=== PATIENT | female | born 1980 | race African-American/Black ===

== ENCOUNTER 2018-11-18 21:45 | Emergency (ER) | payer BC ==
[~2018-11-18] VITALS: Ht 154.9 cm; Wt 72.6 kg
[2018-11-18 22:16] VITALS: BP 132/86
--- NOTE | 2018-11-18 22:37 | PHYS DOC ---
Past History Past Medical History: No Pertinent History Past Surgical History: Alcohol Use: None Drug Use: None Adult General Chief Complaint Chief Complaint: FOOT INJURY PAIN HPI HPI 38-year-old female presents with left foot pain. The patient From a chair and her feet were sleep yesterday she went to take a step and stumbled. She did not fall to the floor, but she had pain in the lateral aspect of her left foot. She used intermittent ice and elevation most of the day yesterday. He continues to hurt today. She has no ecchymosis, but does have swelling over the lateral aspect of that foot. The patient is post-go to work tomorrow it is still very difficult to walk so she decided she should make sure there is no fracture. She denies any other injuries or complaints. Review of Systems Review of Systems Constitutional: Denies fever or chills [] Eyes: Denies change in visual acuity, redness, or eye pain [] HENT: Denies nasal congestion or sore throat [] Respiratory: Denies cough or shortness of breath [] Cardiovascular: No additional information not addressed in HPI [] GI: Denies abdominal pain, nausea, vomiting, bloody stools or diarrhea [] : Denies dysuria or hematuria [] Musculoskeletal: Left foot pain[] Integument: Denies rash or skin lesions [] Neurologic: Denies headache, focal weakness or sensory changes [] Endocrine: Denies polyuria or polydipsia [] All other systems were reviewed and found to be within normal limits, except as documented in this note. Allergies Allergies Allergies Coded Allergies Type Severity Reaction Last Updated Verified No Known Drug Allergies 06/30/14 No Physical Exam Physical Exam Constitutional: Well developed, well nourished, no acute distress, non-toxic appearance. [] HENT: Normocephalic, atraumatic, bilateral external ears normal, oropharynx moist, no oral exudates, nose normal. [] Eyes: PERRLA, EOMI, conjunctiva normal, no discharge. [] Neck: Normal range of motion, no tenderness, supple, no stridor. [] Cardiovascular:Heart rate regular rhythm, no murmur [] Lungs & Thorax: Bilateral breath sounds clear to auscultation [] Abdomen: Bowel sounds normal, soft, no tenderness, no masses, no pulsatile masses. [] Skin: Warm, dry, no erythema, no rash. [] Back: No tenderness, no CVA tenderness. [] Extremities: Tenderness over the fifth metatarsal distribution of the left foot. No ecchymosis, mild swelling[] Neurologic: Alert and oriented X 3, normal motor function, normal sensory function, no focal deficits noted. [] Psychologic: Affect normal, judgement normal, mood normal. [] Current Patient Data Vital Signs Vital Signs Date Time Temp Pulse Resp B/P (MAP) Pulse Ox O2 Delivery O2 Flow Rate FiO2 11/18/18 22:16 96.8 81 20 100 Room Air EKG EKG [] Radiology/Procedures Radiology/Procedures [] Impressions: Preliminary interpretation: No acute fracture seen. Course & Med Decision Making Course & Med Decision Making Pertinent Labs and Imaging studies reviewed. (See chart for details) The patient's x-rays negative for fracture. I believe she just sprained her foot. I've advised supportive care. She is stable for discharge. [] Dragon Disclaimer Dragon Disclaimer This electronic medical record was generated, in whole or in part, using a voice recognition dictation system. Departure Departure: Impression: Primary Impression: Sprain of left foot Disposition: HOME, SELF-CARE Condition: STABLE Referrals: PCP,NO (PCP) Patient Instructions: Foot Sprain Problem Qualifiers Primary Impression: Sprain of left foot Encounter type: initial encounter Qualified Codes: S93.602A - Unspecified sprain of left foot, initial encounter FRIEDA RICHARDSON DO Nov 18, 2018 22:37
--- NOTE | 2018-11-19 03:01 | RAD ---
Left foot x-rays 3 views HISTORY: Left foot twisting injury and pain. FINDINGS: No fracture, dislocation or arthritic change. The soft tissues are unremarkable. On the AP view there is mildly prominent distance between the first tarsometatarsal joint and the second tarsometatarsal joint, separation due to injury of the Lisfranc ligament is not excluded. IMPRESSION: No fracture. Questionable separation between the first and second tarsometatarsal joints raising the possibility of an injury of the Lisfranc ligament. This could be further assessed with MR imaging. Electronically signed by: Joseph Wilkinson MD (11/19/2018 2:57 AM) [id number]
== END 2018-11-18 23:53 | disposition home or self-care (01) ==
LOC: ER 21:45
DX: S93.602A Unspecified sprain of left foot, initial encounter (principal); W18.40XA Slipping, tripping and stumbling without falling, unspecified, initial encounter; Y93.89 Activity, other specified; Y92.89 Other specified places as the place of occurrence of the external cause; Y99.8 Other external cause status
CPT/HCPCS: 73630; 99283